=== PATIENT | male | born 1975 | race Two or more races ===

== ENCOUNTER 2021-10-30 19:58 | Emergency (ER) | payer MEDICAID ==
[~2021-10-30] VITALS: Ht 157.5 cm; Wt 70.0 kg
[2021-10-30 20:03] VITALS: BP 140/82
[2021-10-30] MEDS ORDERED: IV NORMAL SALINE 1000ML BAG 1,000 ML IV SCH (20:15)
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
[2021-10-30] MEDS ORDERED: ACETAMINOPHEN 325 MG TABLET. PO ONE (21:15)
--- NOTE | 2021-10-30 21:30 | RAD ---
Exam: Chest one view INDICATION: Right flank pain TECHNIQUE: Frontal view of the chest Comparisons: None FINDINGS: The cardiomediastinal silhouette and pulmonary vessels are within normal limits. The lung and pleural spaces are clear. Numerous right rib fixation devices are seen. IMPRESSION: No acute cardiopulmonary process. Electronically signed by: Bia Wells MD (10/30/2021 9:27 PM) [facility]
[2021-10-30] MEDS ORDERED: LIDO700A21 TP (21:40)
== END 2021-10-30 23:55 | disposition home or self-care (01) ==
LOC: ER 19:58
DX: G89.29 Other chronic pain (principal); M54.6 Pain in thoracic spine; Z59.00 Homelessness unspecified; F31.9 Bipolar disorder, unspecified; F41.9 Anxiety disorder, unspecified; Z87.828 Personal history of other (healed) physical injury and trauma
CPT/HCPCS: 71045; 99284-25

== ENCOUNTER 2021-11-18 04:58 | Emergency (ER) | payer MEDICAID ==
[~2021-11-18] VITALS: Ht 165.1 cm; Wt 82.0 kg
[~2021-11-18 04:58] MED LIST: LIDO700A21 TP
[2021-11-18 06:05] VITALS: BP 138/67
[2021-11-18] MEDS ORDERED: DICL20GE TP (06:11)
--- NOTE | 2021-11-18 06:12 | PHYS DOC ---
Past Medical History Additional Past Medical Histor: poor historian Past Surgical History: Other Additional Past Surgical Histo: poor historian. L BKA and large scar to back Smoking Status: Current Every Day Smoker Alcohol Use: None General Adult EDM: Chief Complaint: LOWER EXT PAIN HPI: HPI: 46-year-old male presents to the ED BIBEMS after 911 was called for solicitation, complains of left knee pain but points to his LLE stump, history of BKA. Also c/o chronic back pain. Denies any recent falls/trauma. Review of Systems: Review of Systems: Constitutional: Denies fever or chills. [] Eyes: Denies change in visual acuity. [] HENT: Denies nasal congestion or sore throat. [] Respiratory: Denies cough or shortness of breath. [] Cardiovascular: Denies chest pain or edema. [] GI: Denies abdominal pain, nausea, vomiting, bloody stools or diarrhea. [] : Denies saddle anesthesia or incontinence Musculoskeletal: Denies flank pain or joint deformity Integument: Denies rash or diaphoresis Neurologic: Denies headache, focal weakness or sensory changes. [] Endocrine: Denies polyuria or polydipsia. [] Lymphatic: Denies swollen glands. [] Psychiatric: Denies depression or anxiety. [] Heart Score: C/O Chest Pain: No Risk Factors: Risk Factors: DM, Current or recent (<one month) smoker, HTN, HLP, family history of CAD, obesity. Risk Scores: Score 0 - 3: 2.5% MACE over next 6 weeks - Discharge Home Score 4 - 6: 20.3% MACE over next 6 weeks - Admit for Clinical Observation Score 7 - 10: 72.7% MACE over next 6 weeks - Early Invasive Strategies Allergies: Allergies: Allergies Coded Allergies Type Severity Reaction Last Updated Verified No Known Drug Allergies 10/30/21 No Physical Exam: PE: Constitutional: Well developed, well nourished, no acute distress, non-toxic appearance, faint alcohol on breath-no ataxia HENT: Normocephalic, atraumatic, no signs of head trauma Eyes: EOMI, conjunctiva normal, no discharge. Neck: Normal range of motion, supple, Cardiovascular: S1/2 present, regular rhythm Lungs & Thorax: Speaking in full sentences, bilateral equal chest rise, no tachypnea or increased work of breathing Abdomen: soft, no tenderness, Skin: Warm, dry, no erythema, no rash. [] Back: No tenderness, no CVA tenderness. [] Extremities: N no cyanosis, left bka with stump c/d/i with no erythema or reproducible tenderness on exam, patient with no left knee or hip pain, pt was seen ambulating into the department Neurologic: Alert and oriented X 3, normal motor function, normal sensory function, no focal deficits noted. [] Psychologic: Affect normal, judgement normal, mood normal. [] Current Patient Data: Vital Signs: Vital Signs Date Time Temp Pulse Resp B/P (MAP) Pulse Ox O2 Delivery O2 Flow Rate FiO2 11/18/21 05:04 98.3 84 20 127/69 (88) 98 Room Air 98.3 EKG: EKG: [] Radiology/Procedures: Radiology/Procedures: IMAGING REPORT Signed PATIENT: STEVE GONZALEZACCOUNT: [id number] : 1975 LOCATION: ER AGE: 46 SEX: M EXAM STATUS: REG ER ORD. PHYSICIAN: PEMA GR DO REASON: knee pain PROCEDURE: KNEE LEFT 3V XR KNEE _3 VIEWS_LT 11/18/2021 5:15 AM INDICATION: Knee pain COMPARISON: None available. TECHNIQUE: 2 views of the left knee are provided. FINDINGS/ IMPRESSION: Vhdmi-gpr-[id number] amputation changes are identified. Joint spaces are maintained. No acute fracture or dislocation. There may be mild soft tissue swelling along the amputation without subcutaneous gas or osseous erosion. Surgical clips id entified. No additional radiopaque foreign density. Electronically signed by: Omari Molina MD (11/18/2021 6:09 AM) [facility] DICTATED and SIGNED BY: OMARI MOLINA MD DATE: 11/18/21 [id number] 0 Course & Med Decision Making: Course & Med Decision Making Pertinent Labs and Imaging studies reviewed. (See chart for details) Concern for chronic back pain and left knee pain with unremarkable imaging which is consistent with patient's physical exam. I do suspect malingering tendencies. Patient is well-appearing, hemodynamically stable, afebrile with no active distress. Patient has medical decision made capacity and is clinically sober. Will discharge home with strict ED return precautions were given for trauma, severe pain or neurologic deficits. Encouraged urgent outpatient follow- up with PMD routine care. Life-threatening processes were considered but are low suspicion at this time, given history, physical exam and ED workup. Pt was educated on all prescription medications and adverse effects. All patient's questions were answered and pt was stable at time of discharge. Life/limb-threatening differential includes but is not limited to, trauma (fracture, dislocation, laceration, compartment syndrome, tendon or ligament injury), neurovascular injury or deficitcva/tia, infection (osteomyelitis, abscess, cellulitis, septic arthritis, necrotizing fasciitis), deep vein thrombosis, renal/cardiac/liver disease, medication adverse effect, lymphedema/anasarca, vascular insufficiency or malignancy, I have spoken with the patient and/or caregivers. I explained the patient's condition, diagnoses and treatment plan based on the information available to me at this time. I have answered the patient and/or caregiver's questions and addressed any concerns. The patient and/or caregivers have a good understanding of patient's diagnosis, condition and treatment plan as can be expected at this point. Vital signs have been stable. Patient's condition is stable and appropriate for discharge from the emergency department. Patient will pursue further outpatient evaluation with primary care physician or other designated or consulting physician as outlined in the discharge instructions. The patient and/or caregivers are agreeable to this plan of care and follow-up instructions have been explained in detail. The patient and/or caregivers have received these instructions in written form and have expressed an understanding of the discharge instructions. The patient and/or caregivers are aware that any significant change of condition or worsening of symptoms should prompt immediate return to this or the closest emergency department or call to 911. Juhi Disclaimer: Juhi Disclaimer: This electronic medical record was generated, in whole or in part, using a voice recognition dictation system. Departure Departure Impression: Primary Impression: Knee pain, chronic Additional Impression: Homeless Disposition: HOME / SELF CARE / HOMELESS Condition: STABLE Referrals: NO PCP (PCP) Follow-up with your primary care physician in 24 to 48 hours OR FOLLOW UP WITH FAMILY MEDICINE: [address], [address] [place] [address] Patient Instructions: Knee Pain Additional Instructions: EMERGENCY DEPARTMENT GENERAL DISCHARGE INSTRUCTIONS Thank you for coming to [facility] Emergency Department (ED) today and trusting us with you care. We trust that you had a positive experience in our Emergency Department. If you wish to speak to the department management, you may call the Director at [phone]. YOUR FOLLOW UP INSTRUCTIONS ARE FOLLOWS: 1. Do you have a private Doctor? If you do not have a private doctor, please ask for a resource list of physicians or clinics that may be able to assist you with follow up care. 2. The Emergency Physicain has interpreted your x-rays. The X-Ray specialist will also review them. If there is a change in the findings, you will be notified in 48 hours when at all possible. 3. A lab test or culture has been done, your results will be reviewed and you will be notified if you need a change in treatment. ADDITIONAL INSTRUCTIONS AND INFORMATION: 1. Your care today has been supervised by a physician who is specially trained in emergency care. Many problems require more than one evaluation for a complete diagnosis and treatment. We recommend that you schedule your follow up appointment as recommended to ensure complete treatment of you illness or injury. If you are unable to obtain follow up care and continue to have a problem, or if your condition worsens, we recommend that you return to the ED. 2. We are not able to safely determine your condition over the phone nor are we able to give sound medical advice over the phone. For these safety reasons, if you call for medical advice we will ask you to come to the ED for further evaluation. 3. If you have any questions regarding these discharge instructions please call the ED at [phone]. SAFETY INFORMATION: In the interest of safety, wellness, and injury prevention; we encourage you to wear your sealbelt, if you smoke; quite smoking, and we encourage family to use a protective helmet for bicycling and other sporting events that present an increased risk for head injury. IF YOUR SYMPTOMS WORSEN OR NEW SYMPTOMS DEVELOP, OR YOU HAVE CONCERNS ABOUT YOUR CONDITION; OR IF YOUR CONDITION WORSENS WHILE YOU ARE WAITING FOR YOUR FOLLOW UP APPOINTMENT; EITHER CONTACT YOUR PRIMARY CARE DOCTOR, THE PHYSICIAN WHOSE NAME AND NUMBER YOU WERE GIVEN, OR RETURN TO THE ED IMMEDIATELY. Scripts Diclofenac Sodium (Voltaren Arthritis Pain) 20 Gm Gel..gram. 20 GM TP QID for pain for 4 Days, #16 EACH Prov: PEMA GR DO 11/18/21 PEMA GR DO Nov 18, 2021 06:12
--- NOTE | 2021-11-18 06:12 | RAD ---
XR KNEE _3 VIEWS_LT 11/18/2021 5:15 AM INDICATION: Knee pain COMPARISON: None available. TECHNIQUE: 2 views of the left knee are provided. FINDINGS/ IMPRESSION: Lofoq-lcs-xtpe amputation changes are identified. Joint spaces are maintained. No acute fracture or d islocation. There may be mild soft tissue swelling along the amputation without subcutaneous gas or o sseous erosion. Surgical clips identified. No additional radiopaque foreign density. Electronically signed by: Desiree Cornelius MD (11/18/2021 6:09 AM) [facility]
== END 2021-11-18 06:22 | disposition home or self-care (01) ==
LOC: ER 04:58
DX: M25.562 Pain in left knee (principal); G89.29 Other chronic pain; Z59.00 Homelessness unspecified; F17.200 Nicotine dependence, unspecified, uncomplicated
CPT/HCPCS: 73562; 99283

== ENCOUNTER 2021-11-18 10:57 | Emergency (ER) | payer MEDICAID ==
[~2021-11-18] VITALS: Ht 154.9 cm; Wt 95.9 kg
[~2021-11-18 10:57] MED LIST changes: +DICL20GE TP
[2021-11-18 11:39] LABS: BASO % 1 % (0-3); EOS # 0.3 x10^3/uL (0.0-0.7); EOS % 4 % (0-3); HEMATOCRIT 36.9 % (39.0-53.0); HEMOGLOBIN 12.6 g/dL (13.0-17.5); LYMPH % 26 % (24-48); MEAN CORPUSCULAR HEMOGLOBIN 30 pg (25-35); MEAN CORPUSCULAR HGB CONC 34 g/dL (31-37); MEAN CORPUSCULAR VOLUME 89 fL (79-100); MONO # 0.6 x10^3/uL (0.0-1.1); MONO % 7 % (0-9); NEUT # 4.8 x10^3/uL (1.8-7.7); NEUT % 63 % (31-73); PLATELET COUNT 240 x10^3/uL (140-400); RED BLOOD COUNT 4.16 x10^6/uL (4.30-5.70); RED CELL DISTRIBUTION WIDTH 14.3 % (11.5-14.5); WHITE BLOOD COUNT 7.7 x10^3/uL (4.0-11.0)
[2021-11-18 11:51] LABS: CALCIUM 8.5 mg/dL (8.5-10.1); CREATININE 0.7 mg/dL (0.7-1.3); GFR 120.9; POTASSIUM 3.6 mmol/L (3.5-5.1)
[2021-11-18 11:53] LABS: ALBUMIN 3.5 g/dL (3.4-5.0); ALBUMIN/GLOBULIN RATIO 0.9 (1.0-1.7); TOTAL BILIRUBIN 0.4 mg/dL (0.2-1.0); TOTAL PROTEIN 7.3 g/dL (6.4-8.2)
--- NOTE | 2021-11-18 12:12 | RAD ---
INDICATION: Reason: Reported LLE pain, swelling, hx BKA / Spl. Instructions: / History: COMPARISON: None. TECHNIQUE: Grayscale, color and doppler ultrasound images were obtained of the left lower extremity v enous vasculature. LEFT: No thrombus identified in the common femoral vein, femoral vein, popliteal vein. Below the knee amput ation. IMPRESSION: * No thrombus identified in deep venous system of the left lower extremity. Electronically signed by: Naveen Turner MD (11/18/2021 12:09 PM) [id number]
[2021-11-18] MEDS ORDERED: IOHEXOL 350 MG/ML 100 ML VIAL. IV ONE (13:00)
[2021-11-18] MEDS ORDERED: CONTRAST GIVEN. MC PRN (13:00)
[2021-11-18 13:16] VITALS: BP 130/70
--- NOTE | 2021-11-18 13:17 | RAD ---
Examination: CT angiography chest with IV contrast HISTORY: History of elevated d-dimer, chest pain COMPARISON: None TECHNIQUE: Axial CT angiographic images were performed with IV contrast. Coronal and sagittal 3-D MIP reformats are performed Exposure: One or more of the following individualized dose reduction techniques were utilized for thi s examination: 1. Automated exposure control 2. Adjustment of the mA and/or kV according to patient size 3. Use of iterative reconstruction technique FINDINGS: The visualized thyroid gland grossly appears unremarkable. Central airways are patent. The caliber of the aorta grossly appears unremarkable. There is no evidence of filling defect identified in the tej n pulmonary arterial trunk and right and left main pulmonary arteries. The evaluation of the distal b ranches of pulmonary arteries is limited. Coronary artery calcifications. Mild bibasilar lung atelectasis. Plate and screw fixation identified in the right posterior ribs. Fra cture of the right scapula probably old. Mild degenerative changes thoracic spine. The visualized andrzej er demonstrates mild decreased attenuation likely steatosis. The spleen, adrenals grossly appears unr emarkable. IMPRESSION: 1. No evidence of central pulmonary embolism. The evaluation of the distal branches of pulmonary art eries is limited. 2. Coronary artery calcifications. 3. Mild bibasilar lung atelectasis. 4. Plate and screw fixation identified in the right posterior ribs. Fracture of the right scapula pr obably old. Electronically signed by: Javier Escobar MD (11/18/2021 1:15 PM) [id number]
--- NOTE | 2021-11-18 13:33 | PHYS DOC ---
Past Medical History Additional Past Medical Histor: poor historian Past Surgical History: Other Additional Past Surgical Histo: poor historian. 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 Was reportedly seen earlier in the ED and had a x- ray of his left leg without any acute changes and was discharged. He never left the waiting room, and several hours later began complaining of chest pain in addition to his left lower extremity pain. Pain is sharp. Not pressure. Patient was not able to provide much more information. He was even unsure why he had a leg amputation. Review of Systems: Review of Systems: Unable to complete full ROS due to unreliable historian Heart Score: C/O Chest Pain: Yes HEART Score for Chest Pain: HEART Score for Chest Pain Response (Comments) Value History Slighlty/Non-Suspicious 0 ECG Normal 0 Age >45 - < 65 1 Risk Factors 1 or 2 Risk Factors 1 Troponin < Normal Limit 0 Total 2 Risk Factors: Risk Factors: DM Risk Scores: Score 0 - 3: 2.5% MACE over next 6 weeks - Discharge Home Current Medications: Current Medications Medications (Trade) Dose Ordered Sig/Chelita Start Time Stop Time Status Last Admin Dose Admin Info (CONTRAST GIVEN -- Rx MONITORING) 1 each PRN DAILY PRN 11/18/21 13:00 11/20/21 12:59 Iohexol (Omnipaque 350 Mg/ml) 100 ml 1X ONCE 11/18/21 13:00 11/18/21 13:01 DC 11/18/21 13:01 100 ML Allergies: Allergies: Allergies Coded Allergies Type Severity Reaction Last Updated Verified No Known Drug Allergies 11/18/21 No Physical Exam: PE: Constitutional: Overall well-appearing, no acute distress. HENT: Normocephalic, atraumatic Neck: Normal range of motion, no tenderness, supple, no stridor. [] Cardiovascular:Heart rate regular rhythm, no murmur [] Lungs & Thorax: Bilateral breath sounds clear to auscultation [] Abdomen: Bowel sounds normal, soft, no tenderness, no masses, no pulsatile masses. [] Skin: Warm, dry, no erythema, no rash. [] Back: No tenderness, no CVA tenderness. [] Extremities: Left lower extremity BKA, scab present on stump. No overlying skin changes or edema. Ranges knee without difficulty on left. No right lower extremity edema either. Neurologic: Alert and oriented X 3, normal motor function, normal sensory function, no focal deficits noted. [] Current Patient Data: Labs: Laboratory Tests Test 11/18/21 11:18 White Blood Count 7.7 x10^3/uL (4.0-11.0) Red Blood Count 4.16 x10^6/uL (4.30-5.70) L Hemoglobin 12.6 g/dL (13.0-17.5) L Hematocrit 36.9 % (39.0-53.0) L Mean Corpuscular Volume 89 fL (79-100) Mean Corpuscular Hemoglobin 30 pg (25-35) Mean Corpuscular Hemoglobin Concent 34 g/dL (31-37) Red Cell Distribution Width 14.3 % (11.5-14.5) Platelet Count 240 x10^3/uL (140-400) Neutrophils (%) (Auto) 63 % (31-73) Lymphocytes (%) (Auto) 26 % (24-48) Monocytes (%) (Auto) 7 % (0-9) Eosinophils (%) (Auto) 4 % (0-3) H Basophils (%) (Auto) 1 % (0-3) Neutrophils # (Auto) 4.8 x10^3/uL (1.8-7.7) Lymphocytes # (Auto) 2.0 x10^3/uL (1.0-4.8) Monocytes # (Auto) 0.6 x10^3/uL (0.0-1.1) Eosinophils # (Auto) 0.3 x10^3/uL (0.0-0.7) Basophils # (Auto) 0.0 x10^3/uL (0.0-0.2) D-Dimer (Miranda) 0.86 ug/mlFEU (0.00-0.50) H Sodium Level 143 mmol/L (136-145) Potassium Level 3.6 mmol/L (3.5-5.1) Chloride Level 104 mmol/L (98-107) Carbon Dioxide Level 26 mmol/L (21-32) Anion Gap 13 (6-14) Blood Urea Nitrogen 15 mg/dL (8-26) Creatinine 0.7 mg/dL (0.7-1.3) Estimated GFR (Cockcroft-Gault) 120.9 BUN/Creatinine Ratio 21 (6-20) H Glucose Level 76 mg/dL (70-99) Calcium Level 8.5 mg/dL (8.5-10.1) Total Bilirubin 0.4 mg/dL (0.2-1.0) Aspartate Amino Transferase (AST) 13 U/L (15-37) L Alanine Aminotransferase (ALT) 21 U/L (16-63) Alkaline Phosphatase 84 U/L (46-116) Troponin I High Sensitivity 5 ng/L (4-75) Total Protein 7.3 g/dL (6.4-8.2) Albumin 3.5 g/dL (3.4-5.0) Albumin/Globulin Ratio 0.9 (1.0-1.7) L Laboratory Tests 11/18/21 11:18 Laboratory Tests 11/18/21 11:18 Vital Signs: Vital Signs Date Time Temp Pulse Resp B/P (MAP) Pulse Ox O2 Delivery O2 Flow Rate FiO2 11/18/21 13:16 89 16 130/70 (90) 98 Room Air 11/18/21 10:57 99.8 99.8 EKG: EKG: Sinus rhythm. Rate 91. Normal axis. Normal intervals. No ST segment elevation or depression. No pathologic Q waves or T wave inversions. Impression: Normal EKG. [] Radiology/Procedures: Radiology/Procedures: [] Impression: [facility] [address] [place], [place] [id number] IMAGING REPORT Signed PATIENT: GEORGIA GONZALEZUNT: [id number] : 1975 LOCATION: ER AGE: 46 SEX: M EXAM STATUS: REG ER ORD. PHYSICIAN: SCOTT FISHER MD REASON: dimer elevated, cp PROCEDURE: CT ANGIOGRAPHY CHEST Examination: CT angiography chest with IV contrast HISTORY: History of elevated d-dimer, chest pain COMPARISON: None TECHNIQUE: Axial CT angiographic images were performed with IV contrast. Coronal and sagittal 3-D MIP reformats are performed Exposure: One or more of the following individualized dose reduction techniques were utilized for this examination: 1. Automated exposure control 2. Adjustment of the mA and/or kV according to patient size 3. Use of iterative reconstruction technique FINDINGS: The visualized thyroid gland grossly appears unremarkable. Central airways are patent. The caliber of the aorta grossly appears unremarkable. There is no evidence of filling defect identified in the main pulmonary arterial trunk and right and left main pulmonary arteries. The evaluation of the distal branches of pulmonary arteries is limited. Coronary artery calcifications. Mild bibasilar lung atelectasis. Plate and screw fixation identified in the right posterior ribs. Fracture of the right scapula probably old. Mild degenerative changes thoracic spine. The visualized liver demonstrates mild decreased attenuation likely steatosis. The spleen, adrenals grossly appears unremarkable. IMPRESSION: 1. No evidence of central pulmonary embolism. The evaluation of the distal branches of pulmonary arteries is limited. 2. Coronary artery calcifications. 3. Mild bibasilar lung atelectasis. 4. Plate and screw fixation identified in the right posterior ribs. Fracture of the right scapula probably old. Electronically signed by: Javier Escobar MD (11/18/2021 1:15 PM) [id number] DICTATED and SIGNED BY: JAVIER ESCOBAR MD DATE: 11/18/21 [id number] 0 Course & Med Decision Making: Course & Med Decision Making Pertinent Labs and Imaging studies reviewed. (See chart for details) Patient 46-year-old male with history of DM, left BKA who presents for second visit today for left leg pain, now complaining of chest pain. Patient is an exceedingly poor historian, somewhat limiting evaluation. EKG has no ischemic changes. Troponin is negative. From what I can gather, pain does not seem to be typically anginal. Given his complaints of leg pain and chest pain, considered DVT/PE. Venous u ltrasound was negative in the lower extremity. Dimer was positive, so CTA was obtained and was ultimately negative for PE. No other causative findings on chest CT. Remainder of labs largely remarkable. No evidence of lower extremity cellulitis or septic arthritis. Limb is warm and well-perfused, low suspicion for arterial disease. Partially visualized aorta has no evidence of dissection on CTA. Not feel that the patient requires any further work-up for emergent conditions in the emergency department. Juhi Disclaimer: Juhi Disclaimer: This electronic medical record was generated, in whole or in part, using a voice recognition dictation system. Departure Departure Impression: Primary Impression: Chest pain Additional Impressions: Leg pain History of left below knee amputation Disposition: HOME / SELF CARE / HOMELESS Condition: STABLE Referrals: NO PCP (PCP) Additional Instructions: Your work-up was reassuring against medical emergencies. Since you do not have a PCP, please call the number for the [facility] at [phone]. SCOTT FISHER MD Nov 18, 2021 13:32
== END 2021-11-18 15:34 | disposition home or self-care (01) ==
LOC: ER 10:57
DX: R07.89 Other chest pain (principal); M79.605 Pain in left leg; Z89.512 Acquired absence of left leg below knee; Z87.891 Personal history of nicotine dependence
CPT/HCPCS: 36415; 71275; 80053; 84484; 85025; 85379; 93971; 99285; Q9967